=== PATIENT | male | born 1955 | race Caucasian/White ===

== ENCOUNTER → 2017-03-25 18:14 | Emergency (ER) | payer BC ==
[~2017-03-25 18:14] MED LIST: Hepatitis B Immune Globulin* > 312 UNITS/ML 5 ML VIAL IM ONE; Hepatitis B Vaccine (ADULT)* 2 X 0.5 ML VIALS IM ONE
--- NOTE | 2017-03-25 20:06 | ED ---
- HPI Summary HPI Summary: Pt here w/ possible blood born exposure. Was riding the public bus here from [facility] this morning and his eye glasses fell into the toilet. He reached in with both hands up to his elbows to search for these but was unable to recover them. He reports a strong chemical smell from the toilet, assuming the water is sanitized and reports no palpable stool - water was clear and no visible blood. He admits to rinsing his arms in the sink of the bus but didn't wash with soap and water until he got home 30 minutes later. No open wound on exposed areas and denies immunocompromised state. Did not eat or touch his mouth after incident but reports he may have rubbed his eyes out of habit. He and his are concerned about Hepatitis and HIV exposure. He does not believe he's received Hep B vaccine ever - would like tx and to start series today. - History of Current Complaint Chief Complaint: EDGeneral Stated Complaint: POSSIBLE INFECTIOUS EXPOSURE Time Seen by Provider: 03/25/17 18:24 PMH/Surg Hx/FS Hx/Imm Hx Previously Healthy: Yes Endocrine/Hematology History: Denies: Hx Diabetes, Autoimmune Disease Cardiovascular History: Denies: Hx Valvular Heart Disease GI History: Reports: Other GI Disorders - H/o colon CA w/ cehmo and radiation Sensory History: Reports: Hx Contacts or Glasses Opthamlomology History: Reports: Hx Contacts or Glasses Infectious Disease History: No Infectious Disease History: Denies: Hx Hepatitis, Hx Human Immunodeficiency Virus (HIV), Hx of Known/ Suspected MRSA, Traveled Outside the in Last 30 Days - Social History Occupation: Employed Full-time Lives: With Family Alcohol Use: Rare Hx Substance Use: No Substance Use Type: Reports: None Hx Tobacco Use: Yes Smoking Status (MU): Former Smoker Review of Systems Constitutional: Negative - no nightsweats, no weight loss Negative: Fever, Chills Cardiovascular: Negative Respiratory: Negative Gastrointestinal: Other - constipation Positive: no symptoms reported Skin: Negative - open wounds Negative: Rash Neurological: Negative Positive: Anxious All Other Systems Reviewed And Are Negative: Yes Physical Exam Triage Information Reviewed: Yes Vital Signs On Initial Exam: Initial Vitals Temp Pulse Resp BP Pulse Ox 97.8 F 67 18 118/71 98 03/25/17 18:17 03/25/17 18:17 03/25/17 18:17 03/25/17 18:17 03/25/17 18:17 Vital Signs Reviewed: Yes Appearance: Positive: Well-Appearing, No Pain Distress, Well-Nourished Skin: Positive: Warm, Dry - scant tiny minor superficial abrasions (all closed) on UE's Head/Face: Positive: Normal Head/Face Inspection Eyes: Positive: Normal, EOMI ENT: Positive: Hearing grossly normal Respiratory/Lung Sounds: Positive: Breath Sounds Present Cardiovascular: Positive: Normal, RRR, Pulses are Symmetrical in both Upper and Lower Extremities Abdomen Description: Positive: Nontender, Soft Bowel Sounds: Positive: Present Musculoskeletal: Positive: Normal, Strength/ROM Intact Neurological: Positive: Normal, Sensory/Motor Intact, Alert, Oriented to Person Place, Time, CN Intact II-III Psychiatric: Positive: Normal Diagnostics - Vital Signs Vital Signs Temp Pulse Resp BP Pulse Ox 03/25/17 19:02 97.8 F 67 16 118/71 98 03/25/17 18:17 97.8 F 67 18 118/71 98 - Laboratory Lab Statement: Any lab studies that have been ordered have been reviewed, and results considered in the medical decision making process. Needlestick Course/Dx - Course Course Of Treatment: Discussion with patient and regarding risk of exposure. Very low risk of HIV and hepatitis transmission via the route of occurence. We did discuss there is a possibilty he could have transmitted infection via eye rubbing but not enough to warrant HIV prophylaxis. We did agree to start Hep B immunoglobulin and Hep B vaccine series and record baseline labs for f/u w/ PCP. Reviewed danger s/sx of when to seek medical attention. - Diagnoses Provider Diagnoses: Patient exposure to body fluids - Physician Notifications Discussed Care Of Patient With: Dr. Marquez Discharge - Discharge Plan Condition: Stable Disposition: HOME Patient Education Materials: Postexposure Prophylaxis (ED) Referrals: Jose Linton MD [Primary Care Provider] - Additional Instructions: Very low risk of HIV and hepatitis transmission via the route of occurrence however we decided to start Hepatitis B treatment with immunoglobulin and vaccine series. It is important that you follow-up with your PCP for remaining vaccines and repeat blood tests. *If you develop fever, chills, vomiting, nightsweats, unusual infections, unintentional weight loss, seek medical attention
[2017-03-25 20:35] LABS: Manual Entry Verification CAR0052; Rapid HIV INT CONT QC Line Present; Rapid HIV Kit Lot# H017003
[2017-03-25 21:19] VITALS: BP 109/64
== END | disposition home or self-care (01) ==
LOC: ED 18:14
DX: Z77.21 Contact with and (suspected) exposure to potentially hazardous body fluids (principal); F41.9 Anxiety disorder, unspecified
CPT/HCPCS: 36415; 86703; 86706; 86803; 87340; 90471; 99282

== ENCOUNTER 2021-05-07 16:45 | Observation (INO) ==
[2021-05-07] MEDS ORDERED: NS 0.9% 1000 ml BAG 1,000 ML IV ONE ×2 (16:59→22:46)
[2021-05-07 17:30] LABS: ABS Eosinophils 0.2 10^3/ul (0-0.6); ABS Lymphocytes 1.7 10^3/ul (1.0-4.8); ABS Monocytes 0.6 10^3/ul (0-0.8); ABS Neutrophils 3.2 10^3/ul (1.5-7.7); Hematocrit 42 % (42-52); Hemoglobin 14.4 g/dL (14.0-18.0); Lymphocyte % 30.6 %; Mean Corpuscular HGB Conc 34 g/dL (31-36); Mean Corpuscular Hemoglobin 30 pg (27-31); Mean Corpuscular Volume 88 fL (80-94); Mean Platelet Volume 7.8 fL (7.4-10.4); Nucleated Red Blood Cells % 0.1; Platelet Count 252 10^3/uL (150-450); Red Blood Count 4.82 10^6 /uL (4.18-5.48); Red Cell Distribution Width 14 % (10-15); White Blood Count 5.7 10^3/uL (3.5-10.8)
[2021-05-07 17:56] LABS: Activated Partial Thrombo Time 31.8 seconds (26.0-38.0); INR 0.97 (0.86-1.15)
[2021-05-07 17:57] LABS: Albumin 4.4 g/dL (3.2-5.2); Albumin/Globulin Ratio 1.6 (1-3); Calcium 9.7 mg/dL (8.6-10.3); EGFR African American 113.2 (>60); EGFR Non-African American 93.6 (>60); Globulin 2.7 g/dL (2-4); Potassium 3.9 mmol/L (3.5-5.0); Total Bilirubin 1.8 mg/dL (0.2-1.0); Total Protein 7.1 g/dL (6.4-8.9)
[2021-05-07] MEDS ORDERED: Iohexol 350 (CONTRAST) 500 ML MDV IV ONE (18:07)
[2021-05-08 03:46] LABS: Rapid COVID-19 Molecular Undetected (Undetected)
[2021-05-08] MEDS: Enoxaparin 40 MG/0.4 ML SYR SUBCUT SCH (05:53)
[2021-05-08 07:21] LABS: ABS Eosinophils 0.3 10^3/ul (0-0.6); ABS Lymphocytes 1.8 10^3/ul (1.0-4.8); ABS Monocytes 0.6 10^3/ul (0-0.8); ABS Neutrophils 3.3 10^3/ul (1.5-7.7); Eosinophil % 4.4 %; Hematocrit 41 % (42-52); Hemoglobin 13.8 g/dL (14.0-18.0); Lymphocyte % 30.1 %; Mean Corpuscular HGB Conc 34 g/dL (31-36); Mean Corpuscular Hemoglobin 30 pg (27-31); Mean Corpuscular Volume 88 fL (80-94); Mean Platelet Volume 7.8 fL (7.4-10.4); Platelet Count 235 10^3/uL (150-450); Red Blood Count 4.62 10^6 /uL (4.18-5.48); Red Cell Distribution Width 14 % (10-15); White Blood Count 5.9 10^3/uL (3.5-10.8)
[2021-05-08 07:37] LABS: Calcium 9.1 mg/dL (8.6-10.3); EGFR African American 123.5 (>60); Potassium 3.6 mmol/L (3.5-5.0)
[2021-05-08] MEDS ORDERED: Potassium Chlor 20 meq TAB.ER PO ONE (10:03)
[2021-05-08 11:33] LABS: Direct Bilirubin 0.1 mg/dL (0.03-0.18); Total Bilirubin 2.3 mg/dL (0.2-1.0)
[2021-05-09] MEDS ORDERED: Perflutren Lipid Microsphere 3 ML VIAL ONE (07:47)
[2021-05-09] MEDS: Enoxaparin 40 MG/0.4 ML SYR SUBCUT SCH (08:01)
[2021-05-09 11:36] VITALS: BP 127/67
== END 2021-05-09 11:53 | disposition home or self-care (01) ==
LOC: ED 16:45 → MEDTELE 16:45 → SUATTDRO 05-08 02:13 → MEDTELE 05-08 05:05
PROVIDERS: ADMIT Internal Medicine; ATTEND Internal Medicine